=== PATIENT | female | born 1980 | race Caucasian/White ===

== ENCOUNTER 2017-10-16 08:26 | Outpatient (CLI) | payer MEDICAID ==
--- NOTE | 2017-10-16 10:22 | Ultrasound Report ---
RIGHT BREAST ULTRASOUND: 10/16/2017 CLINICAL INDICATION: History of dog bite, hematoma. TECHNIQUE: Real-time scanning was performed with herbicide service sales representative static images obtained. FINDINGS: Ultrasound of the right upper central breast was performed. At the 12 o'clock position, a pproximately 10 cm from the nipple, there is a 5.0 x 5.0 x 2.5 cm hematoma. No sonographically suspi cious findings are identified. IMPRESSION: A 5-CM HEMATOMA, CORRELATING WITH THE PALPABLE ABNORMALITY. RECOMMENDATION: Continued clinical management. Routine annual screening in one year, unless otherwi se clinically indicated. BIRADS CATEGORY 2 - BENIGN FINDINGS. JOB #: [id number] EXT JOB #:[id number]
--- NOTE | 2017-10-16 12:17 | Mammography Report ---
DIGITAL DIAGNOSTIC BILATERAL MAMMOGRAM: 10/16/2017 CLINICAL INDICATION: History of dog bite, hematoma. TECHNIQUE: Bilateral CC and MLO views, right true lateral view. This is the patient's baseline exam ination. FINDINGS: The breasts demonstrate fatty replacement bilaterally. In the right upper central breast, at the site of palpable abnormality indicated with the marker, there is a region of increased parenc hymal density spanning approximately 7 cm. No associated calcifications are seen. No mammographical ly suspicious findings are appreciated in the left breast. Please also refer to right breast ultraso und of the same day. IMPRESSION: BENIGN FINDINGS, WITH A LARGE HEMATOMA IN THE RIGHT UPPER CENTRAL BREAST. RECOMMENDATION: Routine annual screening unless otherwise clinically indicated. Continued clinical management of hematoma. BIRADS CATEGORY 2 - BENIGN FINDINGS. STANDARD QUALIFYING STATEMENTS 1. This examination was reviewed with the aid of Computer-Aided Detection (CAD). 2. A negative or benign imaging report should not delay biopsy if clinically suspicious findings are present. Consider surgical consultation if warranted. More than 5% of cancers are not identified by i maging. 3. Dense breasts may obscure an underlying neoplasm. JOB #: [id number] EXT JOB #:[id number]
== END 2017-10-16 08:27 | disposition home or self-care (01) ==
LOC: DI 08:26
PROVIDERS: ATTEND Physician Assistant Medical
DX: S20.01XA Contusion of right breast, initial encounter (principal)
CPT/HCPCS: 76642; 77066

== ENCOUNTER 2019-04-15 09:14 | Outpatient (CLI) | payer OTHER ==
--- NOTE | 2019-04-15 13:22 | Ultrasound Report ---
Reason: LLQ ABDOMINAL SWELLING,MASS OR LUMP Procedure Date: 04/15/2019 Accession Number: [id number] / [id number] Procedure: US - Abdomen Limited CPT Code: FULL RESULT: EXAM: ABDOMEN ULTRASOUND LIMITED EXAM DATE: 04/15/2019 09:28 AM. CLINICAL HISTORY: Left lower quadrant palpable mass for 5 years. COMPARISON: None. TECHNIQUE: Real-time scanning was performed with static images obtained. FINDINGS: The region indicated as clinically of concern is interrogated by grayscale and limited color Doppler ultrasound and a 4.3 x 4.3 x 4.9 cm complex cystic mass with thickened septa and internal vascularity is demonstrated immediately deep to the abdominal wall. The left ovary is identified nearby and measures 2.1 x 2.4 x 3.5 cm and is otherwise unremarkable by transabdominal ultrasound. It is unclear whether the complex cystic mass arises from the adnexal region or whether it is within the abdominal wall. IMPRESSION: Indeterminate complex cystic mass. Please note that incisional abdominal wall endometrioma can have this appearance but the finding did not appear to be in the region of prior surgical incision. Recommend consideration for CT abdomen pelvis with contrast to clarify. RADIA
== END 2019-04-15 09:15 | disposition home or self-care (01) ==
LOC: DI 09:14
PROVIDERS: ATTEND Physician Assistant Medical
DX: R19.04 Left lower quadrant abdominal swelling, mass and lump (principal)
CPT/HCPCS: 76705

== ENCOUNTER 2019-04-16 09:09 | Outpatient (CLI) | payer OTHER ==
[2019-04-16 14:07] LABS: CREATININE 0.5 mg/dL (0.4-1.0)
== END 2019-04-16 23:59 | disposition home or self-care (01) ==
LOC: LAB.N 09:09
PROVIDERS: ATTEND Physician Assistant Medical
DX: R19.00 Intra-abdominal and pelvic swelling, mass and lump, unspecified site (principal)
CPT/HCPCS: 36415; 82565

== ENCOUNTER 2019-04-22 09:23 | Outpatient (CLI) | payer OTHER ==
[2019-04-22] MEDS ORDERED: IOVERSOL 320 100 ML VIAL IVP ONE ×2 (09:36→11:36)
[2019-04-22] MEDS ORDERED: IOVERSOL 320 50 ML VIAL PO ONE (11:36)
--- NOTE | 2019-04-22 14:04 | CT Report ---
Reason: ABDOMINAL CYST Procedure Date: 04/22/2019 Accession Number: [id number] / [id number] Procedure: CT - Abdomen/Pelvis W CPT Code: FULL RESULT: EXAM: CT ABDOMEN AND PELVIS EXAM DATE: 04/22/2019 09:45 AM. CLINICAL HISTORY: ABDOMINAL CYST. COMPARISONS: ABDOMEN LIMITED 04/15/2019 9:28 AM. TECHNIQUE: Routine helical CT imaging was performed through the abdomen and pelvis. IV contrast: ISOVUE 300 100mL. Enteric contrast: Yes. Reconstructions: Coronal and sagittal. In accordance with CT protocol optimization, one or more of the following dose reduction techniques were utilized for this exam: automated exposure control, adjustment of mA and/or KV based on patient size, or use of iterative reconstructive technique. FINDINGS: Lung Bases: Unremarkable. Solid organs: The liver, spleen, pancreas, and adrenal glands are without evidence of an enhancing mass. There is a calcification in the lower pole of the right kidney. It measures approximately 1.4 cm (image 33 of series 3). There is no hydronephrosis or hydroureter. Peritoneal Cavity/Bowel: There are no dilated loops of bowel to suggest the presence of an obstruction. The appendix is not clearly identified. There is no CT evidence of acute appendicitis. Pelvic Organs: There is no periaortic or pelvic lymphadenopathy. There is a rim-enhancing fluid collection along the left rectus abdominis musculature. It measures approximately 2.7 x 3.7 cm (image 63 of series 3). This corresponds with the lesion seen on the previous ultrasound. Vasculature: There is no evidence of an abdominal aortic aneurysm. Bones: Mild degenerative changes of the thoracic and lumbar spine are noted. IMPRESSION: Redemonstration of a cystic lesion along the left rectus abdominis musculature in the subcutaneous tissues that corresponds with the lesion seen on the previous ultrasound. This most likely represents a seroma or lymphocele and less likely an abscess. RADIA
[2019-04-22] MEDS ORDERED: IOVERSOL 320 50 ML VIAL ONE (16:08)
== END 2019-04-22 09:24 | disposition home or self-care (01) ==
LOC: DI 09:23
PROVIDERS: ATTEND Physician Assistant Medical
DX: K66.8 Other specified disorders of peritoneum (principal)
CPT/HCPCS: 74177; Q9967

== ENCOUNTER 2019-09-13 09:32 | Emergency (ER) | payer OTHER ==
--- NOTE | 2019-09-13 09:56 | ED Physician Documentation ---
PD HPI ABD PAIN - Stated complaint Stated Complaint: FEVER/ABD PX - Chief complaint Chief Complaint: Abd Pain - History obtained from History obtained from: Patient - History of Present Illness Timing - onset: Yesterday Timing - duration: Days (2) Timing - details: Abrupt onset, Still present Quality: Aching, Sharp, Pain Location: RUQ Radiation: Right flank Improved by: No: Eating Worsened by: No: Eating Associated symptoms: Fever, Nausea, Diarrhea (some loose stools few times). No: Vomiting Similar symptoms before: No diagnosis (3 weeks ago for 5 days with fever and right flank pain, vomiting. Then improved for few weeks, with symptoms again yesterday.) Recently seen: Not recently seen Review of Systems Constitutional: reports: Fever, Chills, Myalgias Nose: denies: Rhinorrhea / runny nose, Congestion Throat: denies: Sore throat Cardiac: denies: Chest pain / pressure Respiratory: denies: Dyspnea, Cough GI: reports: Abdominal Pain, Nausea, Diarrhea (mild loose stool). denies: Abdominal Swelling, Vomiting, Constipation, Hematemesis, Bloody / black stool : denies: Dysuria, Frequency, Hematuria, Discharge Skin: denies: Rash, Lesions Neurologic: reports: Generalized weakness, Near syncope. denies: Syncope, Altered mental status Endocrine: reports: Weight loss (100 lbs in past year purposefully with diet and exercise.) Immunocompromised: denies: Immunocompromised PD PAST MEDICAL HISTORY - Past Medical History Past Medical History: No Musculoskeletal: Other (left inguinal cyst, without problems.) - Allergies Allergies/Adverse Reactions: Allergies Allergy/AdvReac Type Severity Reaction Status Date / Time acetaminophen [From Tylenol] Allergy Rash Verified 09/13/19 09:43 PD ED PE NORMAL - Vitals Vital signs reviewed: Yes - General General: Alert and oriented X 3, Well developed/nourished, Other (appears in pain due to right flank.) - HEENT HEENT: Pharynx benign - Neck Neck: Supple, no meningeal sign, No adenopathy - Respiratory Respiratory: Clear bilaterally - Abdomen Abdomen: Normal bowel sounds, Soft, Non distended, No organomegaly, Other (RUQ tender and right CVA tenderness to percussion.) - Female Female : Deferred - Rectal Rectal: Deferred - Derm Derm: Normal color, Warm and dry - Extremities Extremities: No deformity, No tenderness to palpate - Neuro Neuro: Alert and oriented X 3, No motor deficit, Normal speech Results - Vitals Vitals: Vital Signs - 24 hr 09/13/19 09/13/19 09/13/19 09:40 11:58 11:59 Temperature 37 C 36.5 C Heart Rate 97 96 Respiratory 16 18 Rate Blood Pressure 109/55 L 94/70 O2 Saturation 100 97 09/13/19 13:00 Temperature Heart Rate 100 Respiratory 17 Rate Blood Pressure 95/73 O2 Saturation 100 Oxygen O2 Source Room air - Labs Labs: Laboratory Tests 09/13/19 09/13/19 09/13/19 10:26 10:26 10:26 WBC 26.0 H RBC 4.52 Hgb 10.6 L Hct 35.2 L MCV 77.9 L MCH 23.5 L MCHC 30.1 L RDW 15.0 Plt Count 289 MPV 9.2 Neut # (Auto) 22.3 H Lymph # (Auto) 0.8 L Cloud # (Auto) 2.1 H Eos # (Auto) 0.0 Baso # (Auto) 0.1 Absolute Nucleated RBC 0.00 Nucleated RBC % 0.0 Manual Slide Review Indicated WBC Morphology Platelet Estimate NORMAL (130-450,000) Platelet Morphology NORMAL APPEARANCE RBC Morph Micro Appear NORMAL APPEARANCE Sodium 134 L Potassium 2.8 L Chloride 98 L Carbon Dioxide 24 Anion Gap 12.0 BUN 13 Creatinine 0.7 Estimated GFR (MDRD) 92 Glucose 120 H Lactic Acid 0.9 Calcium 8.4 L Total Bilirubin 1.3 H AST 12 ALT 13 Alkaline Phosphatase 62 Total Protein 6.9 Albumin 3.2 Globulin 3.7 Albumin/Globulin Ratio 0.9 L Lipase 25 Urine Color Urine Clarity Urine pH Ur Specific [place] Urine Protein Urine Glucose (UA) Urine Ketones Urine Occult Blood Urine Nitrite Urine Bilirubin Urine Urobilinogen Ur Leukocyte Esterase Urine RBC Urine WBC Ur Squamous Epith Cells Urine Bacteria Ur Microscopic Review Urine Culture Comments Urine HCG, Qual 09/13/19 10:55 WBC RBC Hgb Hct MCV MCH MCHC RDW Plt Count MPV Neut # (Auto) Lymph # (Auto) Cloud # (Auto) Eos # (Auto) Baso # (Auto) Absolute Nucleated RBC Nucleated RBC % Manual Slide Review WBC Morphology Platelet Estimate Platelet Morphology RBC Morph Micro Appear Sodium Potassium Chloride Carbon Dioxide Anion Gap BUN Creatinine Estimated GFR (MDRD) Glucose Lactic Acid Calcium Total Bilirubin AST ALT Alkaline Phosphatase Total Protein Albumin Globulin Albumin/Globulin Ratio Lipase Urine Color YELLOW Urine Clarity HAZY Urine pH 6.5 Ur Specific [place] <=1.005 Urine Protein NEGATIVE Urine Glucose (UA) NEGATIVE Urine Ketones NEGATIVE Urine Occult Blood SMALL H Urine Nitrite NEGATIVE Urine Bilirubin NEGATIVE Urine Urobilinogen 0.2 (NORMAL) Ur Leukocyte Esterase LARGE H Urine RBC 11-25 H Urine WBC >25 H Ur Squamous Epith Cells RARE Squamous Urine Bacteria Few Ur Microscopic Review INDICATED Urine Culture Comments INDICATED Urine HCG, Qual NEGATIVE - Rads (name of study) abd CT Radiology: Prelim report reviewed (1 cm proximal ureteral stone with significant hydronephrosis and hydroureter on the right. Consistent with pyelonephritis and obstruction. Unchanged left lower abdominal wall cyst without any signs of inflammation or infection. No other acute process), See rad report PD MEDICAL DECISION MAKING - ED course Complexity details: reviewed results (The CT showing a large stone in the proximal ureter. Her urine does show signs of infection. She has a significantly elevated white count and fevers. Presume she has an obstructed stone with pyelonephritis which will require urologic intervention. Contact was made with [facility] who arranged transfer to [facility] for further treatment. They state they will be sending an ambulance.), re-evaluated patient, considered differential (Consider UTI versus gallbladder versus kidney stone. Some slight diarrhea so consider colitis or diverticulitis as well.), d/w patient ED course: She is given IV fluids as well as potassium supplement and medicines for nausea and pain. She was given antibiotics of Rocephin and gentamicin for pyelonephritis with stone. Her heart rate did improve. Her blood pressure was still slightly low at 109 but was doing better. She appears stable for transfer at this time. Departure - Departure Disposition: 02 Transfer Acute Care Hosp Clinical Impression: Pyelonephritis, Kidney stone on right side Ureteral obstruction Qualifiers: Laterality: right Qualified Code(s): N13.5 - Crossing vessel and stricture of ureter without hydronephrosis Condition: Stable Record reviewed to determine appropriate education?: Yes
[2019-09-13] MEDS ORDERED: MORPHINE 2 MG/ML CARPUJECT IVP STA (10:15)
[2019-09-13] MEDS ORDERED: ONDANSETRON 4 MG/2 ML VIAL IVP STA (10:15)
[2019-09-13] MEDS ORDERED: SODIUM CHLORIDE 0.9% 1,000 ML IV ONE ×4 (10:15→13:48)
[2019-09-13] MEDS ORDERED: KETOROLAC 15 MG/ML VIAL IVP STA (10:15)
[2019-09-13 10:32] LABS: BASOPHILS # (AUTO) 0.1 10^3/uL (0.0-0.1); BASOPHILS % (AUTO) 0.4 %; HGB - HEMOGLOBIN 10.6 g/dL (12.0-16.0); LYMPHOCYTES # (AUTO) 0.8 10^3/uL (1.5-3.5); MEAN CORPUSCULAR HEMOGLOBIN 23.5 pg (27.0-31.0); MEAN CORPUSCULAR HGB CONC 30.1 g/dL (32.0-36.0); MEAN CORPUSCULAR VOLUME 77.9 fL (81.0-99.0); MEAN PLATELET VOLUME 9.2 fL (7.9-10.8); MONOCYTES # (AUTO) 2.1 10^3/uL (0.0-1.0); MONOCYTES % (AUTO) 7.9 %; NEUTROPHILS # (AUTO) 22.3 10^3/uL (1.5-6.6); NEUTROPHILS % (AUTO) 85.8 %; PLT - PLATELET COUNT 289 10^3/uL (130-450); RED BLOOD COUNT 4.52 10^6/uL (4.20-5.40)
[2019-09-13 10:46] LABS: ALBUMIN 3.2 g/dL (3.2-5.5); ALBUMIN/GLOBULIN RATIO 0.9 (1.0-2.2); BILIRUBIN,TOTAL 1.3 mg/dL (0.2-1.0); CALCIUM 8.4 mg/dL (8.5-10.3); CREATININE 0.7 mg/dL (0.4-1.0); TOTAL PROTEIN 6.9 g/dL (6.7-8.2)
[2019-09-13 10:50] LABS: PLATELET ESTIMATE, MANUAL NORMAL (130-450,000) (NORMAL); PLATELET MORPHOLOGY NORMAL APPEARANCE (NORMAL); RBC MORPHOLOGY (MULTIPLE) NORMAL APPEARANCE (NORMAL)
[2019-09-13 11:06] LABS: BILIRUBIN,URINE NEGATIVE (NEGATIVE); GLUCOSE, URINE (UA) NEGATIVE (NEGATIVE); KETONES,URINE (UA) NEGATIVE (NEGATIVE); LEUKOCYTE ESTERASE, URINE LARGE (NEGATIVE); NITRITE,URINE NEGATIVE (NEGATIVE); OCCULT BLOOD,URINE SMALL (NEGATIVE); PH,URINE 6.5 PH (5.0-7.5); PROTEIN,URINE NEGATIVE (NEGATIVE); UROBILINOGEN,URINE 0.2 (NORMAL) E.U./dL (NORMAL)
[2019-09-13] MEDS ORDERED: POTASSIUM CHLOR 10 MEQ/100 ML 10 MEQ/100 ML BAG IV ONE ×2 (11:06→14:00)
[2019-09-13 11:11] LABS: CLARITY,URINE HAZY (CLEAR); HCG UR QUAL NEGATIVE
[2019-09-13 11:16] LABS: BACTERIA,URINE Few /HPF (None Seen); SQUAMOUS EPITHELIAL CELL,UR RARE Squamous (<= Few)
--- NOTE | 2019-09-13 12:02 | CT Report ---
Reason: lower abd pain and fever Procedure Date: 09/13/2019 Accession Number: [id number] / [id number] Procedure: CT - Abdomen/Pelvis W CPT Code: FULL RESULT: EXAM: CT ABDOMEN AND PELVIS EXAM DATE: 09/13/2019 11:11 AM. CLINICAL HISTORY: Lower abd pain and fever. COMPARISONS: ABDOMEN/PELVIS W/ 04/22/2019 9:38 AM. TECHNIQUE: Routine helical CT imaging was performed through the abdomen and pelvis. IV contrast: ISOVUE 300 100ML. Enteric contrast: No. Reconstructions: Coronal and sagittal. In accordance with CT protocol optimization, one or more of the following dose reduction techniques were utilized for this exam: automated exposure control, adjustment of mA and/or KV based on patient size, or use of iterative reconstructive technique. FINDINGS: Lung Bases: Unremarkable. Liver: Normal. No masses. Gallbladder/Bile Ducts: Sludge in the gallbladder. No definite radiopaque gallstones. No biliary dilation. Spleen: Normal. Pancreas: Normal. Adrenal Glands: Normal. Kidneys: There is moderate right hydronephrosis secondary to a 1 cm obstructing calculus in the right proximal ureter (3/47). There is urothelial enhancement of the right renal pelvis and proximal ureter. Striated nephrogram is noted with heterogeneous attenuation of the right kidney reflecting pyelonephritis. No definite rim-enhancing fluid collections are seen to suggest renal abscess. Fat stranding is seen in the perinephric and paranephric space, likely reactive. Additional tiny 3 mm nonobstructing right interpolar calculus noted (3/39). Unremarkable appearance of the left kidney without calculi or hydronephrosis. Peritoneal Cavity/Bowel: Unremarkable stomach. Normal caliber small bowel loops without signs of wall thickening or hyperemia. No enlarged intraperitoneal or retroperitoneal lymph nodes are seen. No intra-abdominal discrete fluid collections. Appendix is not definitively identified. No pericecal inflammation. Pelvic Organs: Unremarkable urinary bladder for degree of distention. Uterus and ovaries appear within normal limits by CT. Vasculature: No aneurysms or other significant abnormality. Bones: No significant abnormality. Other: Essentially stable 3.9 x 2.6 cm rounded fluid collection in the subcutaneous soft tissues of the left lower abdomen abutting the left-sided rectus abdominis muscle which could reflect a small seroma or lymphocele. No surrounding fat stranding is seen. IMPRESSION: 1. Moderate right hydronephrosis secondary to a 1 cm obstructing calculus in the right proximal ureter. 2. Right-sided pyelonephritis is also seen without evidence for associated right renal abscess. Inflammatory fat fat stranding is seen around the right kidney. 3. Additional nonobstructing tiny right interpolar renal calculus noted. 4. Unremarkable appearance of the left kidney without evidence of calculi or hydronephrosis. 5. Essentially stable left lower abdominal subcutaneous fluid collection abutting the left rectus abdominis muscle that could reflect a small seroma or lymphocele. Abscess is less likely given lack of surrounding inflammation.. RADIA
[2019-09-13] MEDS ORDERED: cefTRIAXone 1 GM VIAL IVP STA (12:09)
[2019-09-13] MEDS ORDERED: GENTAMICIN 80MG VIAL 320 MG in SODIUM CHLORIDE 0.9% 100ML 100 ML IV STA (12:47)
[2019-09-13] MEDS ORDERED: HYDROmorphone 1 MG/ML CARPUJECT IVP STA (13:48)
[2019-09-13 15:01] VITALS: BP 107/73
== END 2019-09-13 15:00 | disposition short-term general hospital (02) ==
LOC: ED 09:32
DX: N13.2 Hydronephrosis with renal and ureteral calculous obstruction (principal)
CPT/HCPCS: 36415; 74177; 80053; 81001; 81025; 83605; 83690; 85025; 87086; 87181; 96361; 96365; 96366; 96375; 99284; 99285; J1170; J1580; 81003

== ENCOUNTER 2019-09-17 09:45 | Outpatient (CLI) | payer OTHER ==
--- NOTE | 2019-09-18 09:29 | XRAY Report ---
Reason: CALCULUS OF THE KIDNEYS Procedure Date: 09/17/2019 Accession Number: [id number] / [id number] Procedure: XRN - Abdomen 1 View X-Ray CPT Code: 32926 FULL RESULT: EXAM: ABDOMEN RADIOGRAPHY EXAM DATE: 09/17/2019 10:16 AM. CLINICAL HISTORY: Calculus of the kidneys. COMPARISON: ABDOMEN/PELVIS W/ 09/13/2019 11:05 AM. TECHNIQUE: 1 view. FINDINGS: Bowel Gas Pattern: Within normal limits. No dilated loops. Other: Interval placement of right nephrostomy tube. There are 2 adjacent calcifications lateral to the L3-L4 disk space, consistent with stable position of ureteral calculi versus comparison CT. The largest calculus is located caudally is added measured at 5 mm. The more proximal calculus is measured at 4 mm. No additional urinary collecting system calculi detected. IMPRESSION: Interval placement of nephrostomy tube. Adjacent ureteral calculi in the mid right ureter, with position overall stable versus comparison CT. RADIA
== END 2019-09-17 09:46 | disposition home or self-care (01) ==
LOC: DI.N 09:45
PROVIDERS: ATTEND Urology
DX: N20.1 Calculus of ureter (principal); Z87.442 Personal history of urinary calculi
CPT/HCPCS: 74018